=== PATIENT | male | born 1960 | race Caucasian/White ===

== ENCOUNTER → 2021-10-29 08:24 | Outpatient (REF) | payer BC, SELFPAY ==
--- NOTE | 2021-10-29 08:31 | CA_ITS ---
Transthoracic Echocardiogram Patient (Last, First, Middle): Bennie Palacios J Gender: Male Date of : 1960 Age: 61 Procedure Date: 10/29/2021 Procedure Type: Transthoracic Echocardiogram Location: [place] Height: 177.8 cm Weight: 97.52 kg BSA: 2.15 m2 Heart Rate: bpm BP: 125 / 70 mmHg Media Librarian: TO Referring MD: Bibiana LIANG Weight Yardage Checker: Robert Vaughn MD Symptoms: HO HTN, HYPERLIPIDEMIA, NEW AFIB Study Quality: Good ECG Rhythm: Sinus Conclusions: - Essentially normal study Findings Left Ventricle Normal left ventricular size, thickness, and systolic function. The visually estimated ejection fraction is between 60-65%. Spectral Doppler is indicative of a normal filling pattern. Right Ventricle Normal right ventricular cavity size and systolic function. Atria The left atrium is likely dilated. There is no evidence of interatrial shunt. The right atrium is normal in size. Aortic Valve Normal aortic valve structure and function. There is no aortic valve stenosis. There is no aortic valve regurgitation. Mitral Valve Normal mitral valve structure and function. There is trace mitral valve regurgitation. There is no mitral valve stenosis. Pulmonic Valve The pulmonic valve was not well visualized. Tricuspid Valve Likely normal tricuspid valve structure and function. Tricuspid regurgitation envelope is inadequate for calculation of right ventricular systolic pressure. Normal right atrial pressure. Great Vessels All visible segments of the aorta are normal in size. The pulmonary artery was not well visualized. Venous The inferior vena cava is normal in size and collapses greater than 50% with inspiration. Pericardium/Pleural There is no evidence of pericardial effusion. Prior Study Comparison No prior study available for comparison. Measurements 2D Linear Measurements IVSd: 0.92 0.6-0.9/0.6-1.0 cm LVIDd: 5.32 3.9-5.3/4.2-5.9 cm LVIDd Index: 2.47 2.4-3.2/2.2-3.1 cm/m2 LVIDs: 3.39 2.0-3.6 cm LVPWd: 0.84 0.7-1.1 cm LA Diam: 4.10 2.7-3.8/3.0-4.0 cm LAIDs Index: 1.91 1.5-2.3 cm/m2 LV Mass: 213.13 67-162/88-224 g LV Mass Index: 99.13 43-95/49-115 g/m2 LVOT Diam: 2.30 3.0+(-)1.3 cm 2D Systolic Function EF 4C: 57.10 >55% EF 2C: 59.40 >55% Mitral Valve MV Pk E: 0.95 MV PK A: 0.89 MV Decel Time: 197.00 E/A: 1.10 E'Lateral: 9.79 E'Medial: 10.10 E/E' Med: 9.40 E/E' Lat: 9.70 PHT: 58.00 MVA PHT: 3.79 Decel [place]: 4.82 Aortic Valve AoV Pk Jagdish: 1.48 AoV Mn Jagdish: 1.06 AoV VTI: 0.35 AoV Pk Grad: 9.00 Aov Mn Grad: 5.00 MAGDALENE Cont.VTI: 2.94 LVOT LVOT Pk Jagdish: 1.23 LVOT Mn Jagdish: 0.73 LVOT VTI: 0.25 LVOT Pk Grad: 6.00 LVOT Mn Grad: 3.00 LVOT Diam: 2.30 LVOT Area: 4.15 Diastolic Function MV Pk E: 0.95 MV Pk A: 0.89 E/A: 1.10 E'Medial: 10.10 E/E' Med: 9.40 E' Laterial: 9.79 E/E' Lat: 9.70 Right Ventricle TAPSE (mm): 29.50 TVS' Jagdish: 15.00 Tricuspid Valve RA Press: 3.00 Great Vessels Aorta Sinus of Valsalva: 3.64 2.0-3.[address] [place]: 2.79 1.7-3.4 cm Ao Asc: 3.30 2.1-3.4 cm Ao Arch: 3.10 Updated in Other Vendor System with Status of Final Robert Vaughn MD electronically signed on 10/31/2021 12:13:05 PM with status of Final
== END ==
LOC: HO.CARD 08:24
PROVIDERS: Visit Provider Physician Assistant
DX: I48.91 Unspecified atrial fibrillation (principal)
CPT/HCPCS: 93306